=== PATIENT | female | born 1990 | race Caucasian/White ===

== ENCOUNTER → 2023-05-28 09:38 | Outpatient (BNVA) | payer OTHER, SELFPAY | PROVIDERS: PCP Family Medicine; Referring Provider Family Medicine; Visit Provider Psychiatry & Neurology Neurology | DX: G40.909 Epilepsy, unspecified, not intractable, without status epilepticus (principal); R51.9 Headache, unspecified; R55 Syncope and collapse | CPT/HCPCS: 36415; 82306; 82607; 82746; 83735; 83921; 84132; 84439; 84443; 84481; 86617 ==

== ENCOUNTER 2023-07-01 14:48 | Outpatient (CLI) | payer OTHER, SELFPAY ==
--- NOTE | 2023-07-01 15:15 | MR_ITS ---
WS: [id number] MRA ANGIOGRAPHY [place] HISTORY: G40.909 - Epilepsy, unspecified, not intractable, without... COMPARISON: None available. TECHNIQUE: 3-D MR angiography is performed of the [place]. All images are reviewed including source images. Distal vertebral and basilar arteries are intact with no significant stenosis or plaque. Posterior ce rebral arteries are normal course and caliber. Posterior communicating arteries are both patent. Intracranial portion of the internal carotid arteries are normal course and caliber. No significant a therosclerosis, stenosis or aneurysm identified. Middle and anterior cerebral arteries are both paten t with no significant disease. Anterior communicating artery is also normal. No strictures or beading . IMPRESSION: Normal MRA [place].
--- NOTE | 2023-07-01 15:30 | MR_ITS ---
WS: [id number] MRI BRAIN WITH AND WITHOUT CONTRAST HISTORY: G40.909 - Epilepsy, unspecified, not intractable, without... COMPARISON: None available. TECHNIQUE: Multiplanar imaging performed through the brain with MultiHance 12 ml's IV. No acute infarcts are seen. Garcia-white matter differentiation is well preserved. Normal hippocampal f ormations. No susceptibility artifacts or prior lacunar infarcts. Ventricles and extra-axial spaces are normal. Clivus and pituitary gland are normal. Visualized posterior fossa and brainstem are also normal. Postcontrast images are negative for masses or vascular malformations. Dural venous sinuses are normal. Paranasal sinuses: Well aerated with no significant disease. Mastoid air cells: Normal. Calvarium and scalp: Normal. IMPRESSION: 1. Normal MRI brain with contrast. 2. No prior infarcts. Normal hippocampal formations.
[2023-07-01] MEDS: gadobenate dimeglumine 20 mL vial IV (16:06)
== END 2023-07-01 14:49 | disposition home or self-care (01) ==
LOC: RAD 14:48
PROVIDERS: PCP Family Medicine; Visit Provider Psychiatry & Neurology Neurology
DX: G40.909 Epilepsy, unspecified, not intractable, without status epilepticus (principal); R51.9 Headache, unspecified; R55 Syncope and collapse
CPT/HCPCS: 70544; 70553; A9577

== ENCOUNTER 2025-03-23 12:24 | Inpatient (IN) | payer SELFPAY ==
[2025-03-23] VITALS (14 sets, daily range): BP systolic 113–137; BP diastolic 79–100; PULSE 83–137; RESP 15–22; TEMP 36.5; O2SAT 96–100
--- OUTSIDE RECORDS SUMMARY | 2025-03-23 12:31 | XMS_ITS | Patient Health Record ---
Author Organization [facility] Address [address] [place] [address] Care Team Providers Care Hedis Specialist Name Role Phone Jamie Robles MD Primary Care Provider Unavailab Neftaly Siegel Unavailable [phone] Allergies No Known Allergies Reason For Referral No Information Medications Medication SIG (Take, Route, Frequency, Duration) Notes Start Date End Date Status Clonazepam ODT Activ e Effexor XR 150 MG Capsule Extended Release 24 Hour 1 capsule with food Orally Once a day Active busPIRone HCl 10 MG Tablet 1 tablet Oral ly Twice a day Active Lopressor 100 MG Tablet 1 tablet with fo od Orally once a day Active Prevalite 4 GM Packet 1 packet Orally 3X day Active Pantoprazole Sodium 40 MG Tablet Delayed Release 1 tablet Orally Once a day; Duration: 30 days 02/26/2023 Active Probiotic - Tablet Delayed Release as directed Orally Active Social History Tobacco Use: Social History Observation Description Date Details (start date - stop date) Never Smoker NA - NA Social History Depression Screening Social Info Question Answer Notes PHQ-9 Little interest or pleasure in doing thin gs Not at all Feeling down, depressed, or hopeless Not at all Trouble falling or staying asleep, or sleeping t oo much Several days Feeling tired or having little energy Several da ys Poor appetite or overeating Not at all Feeling bad about yourself, or that you are a failure, or have let yourself or your family down Not at all Trouble concentrating on thi ngs, such as reading the newspaper or watching television Not at all Moving or speaking so slowly that other people could have noticed. Or the opposite ? being so fidgety or restless that you have been moving around a lot more than usual Not at all Thoughts that you would be b hayley off , or of hurting yourself in some way Not at all Total Score 2 Interpretation Minimal Depression Drugs/Alcohol: Social Info Question Answer Notes Alcohol Screen (Audit-C) Did you have a drink containing alcohol in the past year? No Points 0 Interpretation Negative Tobacco Use: Social Info Question Answer Notes xTobacco Use/Smoking Are you a nonsmoker Additional Details Category Social Info Options Details Drugs/Alcohol: Do you smoke marijuana? Ad mits Do you drink alcohol? No Section Notes: 09-11-22 smoke screen/alcohol screen depression screen 09-11-22 smoke screen/alcohol screen depression screen 09-11-22 smoke screen/alcohol screen depression screen 09-11-22 smoke screen/alcohol screen depression screen Problems Problem Type SNOMED Code ICD Code Onset Dates Problem Status W/U Status Risk Notes Problem Hemoperitoneum (62325725) Hemoperitoneum (K66.1) Active confirmed Problem Essential hypertension (91862854) Essential hypertension (I10) Active confirmed Problem Diarrhea (38390091) Diarrhea, unspecified type (R19.7) Active confirmed Problem Pain in pelvis (73945179) Pelvic pain (R10.2) Active confirmed Problem Right ovarian cyst (48056516477000682) Right ovarian cyst (N83.201) Active confirmed Problem Chronic diarrhea (221703212) Chronic diarrhea (K52.9) Active confirmed Problem Ulcerative colitis (95506803) Ulcerative colitis with complication, unspecified location (K51.919) Active confirmed Problem Tobacco use (715366373) Vapes nicotine containing substance (Z72.0) Active confirmed Problem Gastroesophageal reflux disease (767974543) Gastroesophageal reflux disease, unspecified whether esophagitis present (K21.9) Active confirmed Problem Nausea and vomiting (87795883) Nausea and vomiting, unspecified vomiting type (R11.2) Active confirmed Plan Of Treatment Pending Test Test Name Order Date Culture Stool 07439, 82197, 92327, 37732 , 10607 02/26/2023 Giardia/Cryptosporidium Screen 26105, 87 329 02/26/2023 Hepatic Function Panel 18044 02/26/2023 O & P Stool 72512, 89405 02/26/2023 Calprotectin Fecal 99187 02/26/2023 C Diff Toxin EIA--49859 02/26/2023 Pancreatic Elastase Fecal--02634 023 Insurance Providers Payer Name Payer Address Payer Phone Subscriber Number Group Number Insured Name Patient Relationship to Insured Coverage Start Date Coverage End Date [address] [address] [place] [address] [id number] Candice Garzon Self - patient is the insured [place] [address] [place] [address] [phone] [id number] Candice Garzon Self - patient is the insured Medical (General) History Medical History History ICD Code Recent stomach issues. Surgical History Surgery Date(Month/Year) ovarian cyst removal 01/23 Hospitalization History Reason Date(Month/Year) see surgical hx
--- NOTE | 2025-03-23 12:36 | ECG_ITS ---
Next [facility] Test Date: 2025-03-23 Pat Name: Candice Garzon Department: Room: Gender: Female Assembly Leader: : 1990 Requested By: Adam Salter Order Number: [id number] Virgil MD: Kobe Garza M.D. Measurements Intervals [place] Rate: 130 P: 40 OR: 100 QRS: 39 QRSD: 74 T: 30 QT: 293 QTc: 432 Interpretive Statements SINUS TACHYCARDIA WITH SHORT OR INTERVAL MODERATE ST DEPRESSION [0.05+ mV ST DEPRESSION] No previous ECG available for comparison Electronically Signed On 03-26-2025 08:52:23 CDT by Kobe Garza M.D. [email or web address]
--- NOTE | 2025-03-23 12:56 | ED_ITS ---
HPI - Chest Pain 2 General: Chief Complaint: Chest Pain Stated Complaint: Lower ABD pain N/V/D can't keep anything down Time Seen by Provider: 03/23/25 12:44 History of Present Illness: 34-year-old female presents to the emerg ency room with complaint of abdominal pain. She states she has been diagnosed gastroparesis in the past. Is complaining mostly of lower abdominal pain she has had nausea vomiting cannot keep anything down she denies any medic easier melena. She also has some pain radiating into the chest associated with her abdominal pain. No history of DVT or PE no shortness of breath at this time. She tells me she previously has had workup for this was told she had gastroparesis. In old records there is mention that she had previously had EGD and colonoscopy biopsies which were indeterminant for ulcerative colitis or Crohn's she was treated for steroids for a time and got better. There is mention of a seizure when she was released she is not on any seizure medications according to her Jesusita's note these were more likely syncopal episodes cardiac origin. Associated symptoms: Reports abdominal pain and nausea; Deny dyspnea or fever(s) Related Data Home Medications ?Medication ?Instructions ?Recorded ?Confirmed prazosin 2 mg capsule 2 mg PO BEDTIME 11/03/23 alprazolam 0.5 mg tablet (Xanax) See Rx Instructions . Route 03/23/25 03/23/25 .COMPLEX PRN Anxiety diphenhydramine HCl 25 mg capsule 25 mg PO BEDTIME PRN Sleep 03/23/25 03/23/25 (Benadryl) Previous Rx's ?Medication ?Instructions ?Recorded pregabalin 100 mg capsule (Lyrica) 100 mg PO BID #60 c aps 11/11/24 ergocalciferol (vitamin D2) 1,250 1,250 mcg PO Q7D 3 m [facility] #13 caps 03/08/25 mcg (50,000 unit) capsule Allergies Allergy/AdvReac Type Severity Reaction Status Date / Time No Known Allergies Allergy Verified 05/12/24 12:45 Review of Systems 2 Const: Denies: fever(s) or chills Card: Denies: chest pain Resp: Denies: dyspnea GI: Reports: abdominal pain, nausea and diarrhea : Denies: dysuria, urinary frequency or urinary urgency Musc: Denies: neck pain or back pain Skin/Breast: Denies: rash PFSH ED 2 PFSH: Social History Smoking and tobacco/nicotine status: former use of tobacco/nicotine (vape) Alcohol intake: never Substance/Drug Use: current Physical Exam 2 Const: GENERAL APPEARANCE: cooperative ORIENTATION/CONSCIOUSNESS: Yes awake HENMT: COMMON NORMALS: normocephalic, atraumatic and hearing grossly normal bilaterally HEAD & SCALP: normocephalic and atraumatic Resp: COMMON NORMALS: normal respiratory effort, No retractions, No use of accessory muscles and clear to auscultation bilaterally AUSCULTATION: clear to auscultation bilaterally Cardio: COMMON NORMALS: regular rhythm and No murmurs present (Cardio) R ATE: tachycardic RHYTHM: regular rhythm GI: AUSCULTATION: Yes normoactive bowel sounds PALPATION: Yes Tenderness to palpation present (GI) (Diffuse) and No Guarding due to palpation present (GI) Extremity: COMMON NORMALS: normal to inspection, capillary refill normal, no clubbing, cyanosis or edema, no calf tenderness and no pedal edema Skin: COMMON NORMALS: no rashes or lesions noted GENERAL SKIN EXAM: no rashes or lesions noted Course 2 Vital Signs: Vital signs: Vital Signs Temperature 97.7 F 03/23/25 12:37 Pulse Rate 101 H 03/23/25 15:00 Respiratory Rate 17 03/23/25 15:00 Blood Pressure 122/82 03/23/25 15:30 Pulse Oximetry 96 03/23/25 15:00 Oxygen Delivery Me thod Room Air 03/23/25 12:37 MDM - Chest Pain Medical Decision Making CT abdomen shows small bowel enteritis with transmural thickening concerning for Crill. No confirmed diagnosis in the past. No distention of the stomach. Discussed with hospitalist. Hospitalist seen the patient, he felt she needed to be seen by GI. He is making arrangements for transfer. Medical Records I reviewed the patient's medical records. Lab Data 03/23/25 12:49 03/23/25 12:49 Radiology Impressions Abdomen/Pelvis CT 03/23/25 13:03 IMPRESSION: 1. Small bowel findings are highly suggestive of Crohn's disease with acute exacerbation of transmural inflammation at this time. There is mucosal enhancement with wall thickening and fibrofatty proliferation involving the distal small bowel. Single stricture also noted in the RIGHT lower quadrant. 2. Normal appendix. 3. No ascites. 4. Stomach is not distended. Laboratory Results WBC 8.18 10^3/uL (3.29-11.43) 03/23/25 12:49 RBC 4.44 10^6/uL (3.85-5.65) 03/23/25 12:49 Hgb 11.90 g/dL (11.27-16.99) 03/23/25 12:49 Hct 36.0 % (36-47) 03/23/25 12:49 MCV 81.1 fl (85-98) L 03/23/25 12:49 MCH 26.8 pg (27-33) L 03/23/25 12:49 MCHC 33.1 g/dL (30-55) 03/23/25 12:49 RDW 14.2 % (12.1-15.1) 03/23/25 12:49 Plt Count 438 10^3/cmm (157-399) H 03/23/25 12:49 MPV 9.5 fL (7.4-10.4) 03/23/25 12:49 Neut % (Auto) 74.5 % 03/23/25 12:49 Lymph % (Auto) 19.3 % 03/23/25 12:49 [place] % (Auto) 4.8 % 03/23/25 12:49 Eos % (Auto) 0.7 % 03/23/25 12:49 Baso % (Auto) 0.5 % 03/23/25 12:49 Neut # (Auto) 6.09 10^3/uL (1.8-7.7) 03/23/25 12:49 Lymph # (Auto) 1.6 10^3/uL (0.8-4.8) 03/23/25 12:49 [place] # (Auto) 0.4 10^3/uL (0.2-0.9) 03/23/25 12:49 Eos # (Auto) 0.1 10^3/uL (0.0-0.8) 03/23/25 12:49 Baso # (Auto) 0.0 10^3/uL (0.0-0.1) 03/23/25 12:49 Nucleated RBC % (auto) 0 % 03/23/25 12:49 Nucleated RBCs # 0.0 /100WBC 03/23/25 12:49 Sodium 136 mmol/L (136-145) 03/23/25 12:49 Potassium 3.7 mmol/L (3.5-5.1) 03/23/25 12:49 Chloride 99 mmol/L (98-107) 03/23/25 12:49 Carbon Dioxide 20 mmol/L (22-29) L 03/23/25 12:49 Anion Gap 20.7 (5-19) H 03/23/25 12:49 BUN 5 mg/dL (6-20) L 03/23/25 12:49 Creatinine 0.7 mg/dL (0.5-0.9) 03/23/25 12:49 GFR Calculation 96.4 mL/min (90-130) 03/23/25 12:49 Glucose 100 mg/dL (65-115) 03/23/25 12:49 Calculated Osmolality 279 mOsm/kg (285-295) L 03/23/25 12:49 Calcium 9.7 mg/dL (8.5-10.5) 03/23/25 12:49 Total Bilirubin 0.4 mg/dL (0.15-1.2) 03/23/25 12:49 AST 25 U/L (0-32) 03/23/25 12:49 ALT 23 U/L (0-33) 03/23/25 12:49 Alkaline Phosphatase 134 U/L (35-105) H 03/23/25 12:49 Total Protein 8.9 g/dL (6.6-8.7) H 03/23/25 12:49 Albumin 4.6 g/dL (3.5-5.2) 03/23/25 12:49 Globulin 4.3 g/dL (1.3-4.6) 03/23/25 12:49 Lipase 16 U/L (13-60) 03/23/25 12:49 HCG, Qual Negative (Negative) 03/23/25 12:49 Urine Color Yellow (Yellow) 03/23/25 15:05 Urine Appearance Clear (CLEAR) 03/23/25 15:05 Urine pH 6.0 (5-7) 03/23/25 15:05 Ur Specific [place] 1.098 (1.005-1.030) H 03/23/25 15:05 Urine Protein Trace (Negative) A 03/23/25 15:05 Urine Glucose (UA) Negative (Normal) 03/23/25 15:05 Urine Ketones 1+ (Negative) H 03/23/25 15:05 Urine Blood Negative (Negative) 03/23/25 15:05 Urine Nitrate Negative (Negative) 03/23/25 15:05 Urine Bilirubin Negative (Negative) 03/23/25 15:05 Urine Urobilinogen 0.2 mg/dL (Negative) 03/23/25 15:05 Ur Leukocyte Esterase Negative (Negative) 03/23/25 15:05 Urine RBC 0-2 /hpf (0-2) 03/23/25 15:05 Urine WBC 0-5 /hpf (0-5) 03/23/25 15:05 Ur Squamous Epith Cells 0-5 /hpf (0-5) 03/23/25 15:05 Amorphous Sediment Not Reportable 03/23/25 15:05 Urine Bacteria 1+ /hpf (NONE) H 03/23/25 15:05 Hyaline Casts 0-4 /lpf H 03/23/25 15:05 All radiology interpretation(s) finalized by discharge Discharge Plan Discharge Patient Disposition: Xfer Short-Term Hosp Clinical Impression: Colitis, Syncope Condition: Stable Referrals: Owen Amos MD [Primary Care Provider, [facility]] Print Language: [place] Coding Level of Care Code ED Broadcast Journalist for Deon Jenkins
[2025-03-23 12:59] LABS: Hematocrit 36.0 % (36-47); Hemoglobin 11.90 g/dL (11.27-16.99); Mean Corpuscular HGB Conc 33.1 g/dL (30-55); Mean Corpuscular Hemoglobin 26.8 pg (27-33); Mean Corpuscular Volume 81.1 fl (85-98); Nucleated Red Blood Cells % 0 %; Platelet Count 438 10^3/cmm (157-399); Red Blood Count 4.44 10^6/uL (3.85-5.65); White Blood Count 8.18 10^3/uL (3.29-11.43)
--- NOTE | 2025-03-23 13:03 | CT_ITS ---
WS: [id number] CT ABDOMEN AND PELVIS WITH CONTRAST HISTORY: abd pain TECHNIQUE: Imaging performed of the abdomen and pelvis with IV contrast. Single phase imaging of the abdomen. Coronal and sagittal reformats are submitted. All CT scans at [facility] use at least one of these dose optimization techniques: automated exposure control; mA and/or kV adjustment per patient size (includes targeted exams where dose is matched to clinical indication); or iterative reconstruction. IV CONTRAST: Omnipaque 350; 100 mL IV. Oral contrast: No DLP: 363.43 mGy.cm COMPARISON: None available. Lower thorax: Lung bases are clear. Heart is normal size. Very small hiatal hernia. Liver/biliary system: Normal size with no intrahepatic dilatation. Gallbladder: Normal. No gallstones or wall thickening. No pericholecystic fluid. Pancreas: Normal size pancreas and pancreatic duct. No adjacent inflammation. Spleen: Normal size spleen. No mass or infarct. Adrenal glands: Normal. Right kidney: Normal. Left kidney: Normal. Aorta: Normal. Lymphadenopathy: None. Free fluid: None. GI tract: Normally distended stomach. No small bowel obstruction. Increased fluid and small bowel mucosal enhancement beginning in the mid to distal small bowel possible stricture in the RIGHT lower quadrant. Mild thickening of the distal small bowel wall as well as local mesenteric fibrofatty proliferation and mild engorgement of the vasa recta. Normal appendix. No colon obstruction. Abdominal wall: Fat containing umbilical hernia. Pelvis: No free fluid or adenopathy within the pelvis. Bones: Unremarkable. CT/CT abdomen pelvis w con* [id number] IMPRESSION: 1. Small bowel findings are highly suggestive of Crohn's disease with acute ex acerbation of transmural inflammation at this time. There is mucosal enhancemen t with wall thickening and fibrofatty proliferation involving the distal small bowel. Single stricture also noted in the RIGHT lower quadrant. 2. Normal appendix. 3. No ascites. 4. Stomach is not distended.
[2025-03-23 13:14] LABS: HCG, Serum Qual Negative (Negative)
[2025-03-23 13:15] LABS: Alanine Aminotransferase 23 U/L (0-33); Albumin Level 4.6 g/dL (3.5-5.2); Alkaline Phosphatase 134 U/L (35-105); Anion Gap 20.7 (5-19); Aspartate Amino Transferase 25 U/L (0-32); Blood Urea Nitrogen 5 mg/dL (6-20); Calcium 9.7 mg/dL (8.5-10.5); Carbon Dioxide 20 mmol/L (22-29); Chloride 99 mmol/L (98-107); Creatinine Clr Calc Pharmacy 99.2994; Globulin 4.3 g/dL (1.3-4.6); Glucose 100 mg/dL (65-115); Lipase 16 U/L (13-60); Osmolality Calculated 279 mOsm/kg (285-295); Potassium 3.7 mmol/L (3.5-5.1); Sodium 136 mmol/L (136-145); Total Protein 8.9 g/dL (6.6-8.7)
[2025-03-23] MEDS: metoclopramide 5 mg/mL SDV 2 mL 10 MG IVP (13:16)
[2025-03-23] MEDS: iohexol 350 mg/mL 500 mL Btl (per mL) IV (13:50)
[2025-03-23 15:29] LABS: Glucose Urine UA Negative (Normal); Nitrate Urine Negative (Negative)
[2025-03-23 15:33] LABS: Add Urine Microscopic? YES
[2025-03-23 16:03] LABS: Specific Gravity, Urine 1.098 (1.005-1.030); UA Slide Review UA Slide Review Perf
--- NOTE | 2025-03-23 18:16 | P.HP_ITS ---
Providers/Chief Complaint 2 Primary Care Provider: Owen Amos MD Chief Complaint: Lower ABD pain N/V/D can't keep anything down History of Present Illness Candice Garzon is a 34 year old female with past medical history of gastrointestinal problem as per the patient diagnosed as IBS previously to 3 years ago by the GI doctor, history of seizures posttraumatic 2 to 3 years ago after history of fall and following with the neurologist not on any antiepileptic medications. As per the neurology likely the patient is having syncope episodes related to paroxysmal orthostatic tachycardic syndrome. Her EEG done in 2022 did not reveal any abnormality.(Detailed report refer to the neurology note). Patient came as a case of nausea vomiting abdominal pain since 3 to 4 days or a week. No blood in the stools no skin rash no mouth ulcers eye symptoms any joint problems or any other systemic symptoms. The patient did not report waking up due to diarrhea stool incontinence. No urinary symptoms. The patient did not report any high-grade fever or chills no recent travels and no outside food intake history. No history of any other drug abuse alcohol intake or any smoking history Rest of the review of system was unremarkable Review of Systems 2 General: Reports: 10 or more systems reviewed and unremarkable except in HPI and below Medications/Allergies Home Medications ?Medication ?Instructions ?Recorded ?Confirmed ?Last Taken ?Type prazosin 2 mg capsule 2 mg PO BEDTIME 11/03/2303/22/25 History pregabalin 100 mg capsule (Lyrica) 100 mg PO BID #60 c aps 11/11/24 03/23/25 03/23/25 Rx ergocalciferol (vitamin D2) 1,250 1,250 mcg PO Q7D 3 m [facility] #13 caps 03/08/25 03/23/25 03/21/25 Rx mcg (50,000 unit) capsule alprazolam 0.5 mg tablet (Xanax) See Rx Instructions . Route 03/23/25 03/23/25 03/23/25 History .COMPLEX PRN Anxiety diphenhydramine HCl 25 mg capsule 25 mg PO BEDTIME PRN Sleep 03/23/25 03/23/25 Unknown History (Benadryl) Allergies Allergy/AdvReac Type Severity Reaction Status Date / Time No Known Allergies Allergy Verified 05/12/24 12:45 PFSH Acute 2 PFSH: Social History Smoking and tobacco/nicotine status: former use of tobacco/nicotine (vape) Alcohol intake: never Substance/Drug Use: current Vitals/I&O/Wt Last Vital Signs Temp 97.7 F 03/23/25 12:37 Pulse 101 H 03/23/25 15:00 Resp 17 03/23/25 15:00 BP 122/82 03/23/25 15:30 Pulse Ox 96 03/23/25 15:00 O2 Del Method Room Air 03/23/25 12:37 Weight last 48 hrs Weight 58.967 kg Physical Exam 2 Narrative: General: Alert oriented x3, patient seen comfortably on the bed HEENT: Normocephalic, atraumatic, EOMI, breathing at room air Cardio: Regular rate rhythm, normal S1-S2, no murmurs rubs gallops, JVD normal_ Respiratory: Good bilateral air entry, no wheezes no rhonchi appreciated GI: Abdomen soft, mildly tender around the periumbilical region, nondistended, normoactive bowel sounds present all 4 quadrants, no organomegaly Neuro: Cranial nerves II to XII intact, strength 5/5, sensation 5/5, no gross neurological deficit Behavior: Appropriate and cooperative Extremities: Pulses 2+, no edema, no cyanosis Skin: Visible skin intact, no rashes Data 03/23/25 12:49 03/23/25 12:49 A&P Assessment and plan 1. Colitis: 2. Syncope: 3. Seizure: Plan: - Sent for stool workup including WBCs and fecal calprotectin - Blood cultures - CRP ESR and lactate - Metronidazole and ciprofloxacin to continue - Continue her home medications for anxiety - Electrolytes monitoring and correction accordingly - Adequate hydration - VTE: Heparin GI consulted at [place] for possible transfer since patient is having features of Crohn's disease with stricture on CT scan and need further care and management accordingly. PDMP PDMP Reviewed: Not Reviewed Attestations 2 Medical Necessity Statement*: Candice Garzon's hospital stay will be more than 2 midnights for possibility of Crohn's disease and Crohn's flare management Time Spent in Patient Care: 16 - 35 minutes (>than 50% of time sp ent in counselling and/or direct pt care on unit) . Other Attestations: Patient condition has been discussed at length with the patient/family, I have independently reviewed the chart labs imaging and diagnostics and EKG. the goals of care and code status with the patient/family/NOK/legal software sales representative, and documented accordingly. The patient/family has been informed about the current condition and further plan of care. Agreed with the plan of care and understood without any language barrier. This documentation was created by [employer] hollow handle knife assembler software. Every effort was made to ensure accuracy of hollow handle knife assembler. Any obvious errors or omissions should be clarified with the author of the document. Coding Level of Care Code 27588 Diagnoses Colitis K52.9 Syncope R55 Seizure R56.9
[2025-03-23] MEDS: pantoprazole 40 mg SDV IVP (18:40)
[2025-03-23] MEDS: HYDROmorphone tab 2 MG TABLET PO (18:49)
--- NOTE | 2025-03-23 18:56 | PC.NURSE ---
This nurse spoke with Dr Mo at [phone] to verify continuing orders despite patient's transfer status. Dr Mo stated to continue ordered meds, as well as collect stool sample if available and continue blood draws.
[2025-03-23 18:57] LABS: Thyroid Stimulating Hormone 1.58 uIU/mL (0.27-4.20)
[2025-03-23] MEDS: metroNIDAZOLE IV 500 MG/100 ML PREMIX 100 MG IV (19:15)
--- NOTE | 2025-03-23 20:27 | PM.TDS ---
Transfer Summary Providers Date of Discharge/Transfer: 03/24/25 Attending Provider at Transfer: Alfonzo Loo MD Primary Care Provider: Owen Amos MD Transfer Plans: Anticipated date of transfer: 03/24/25. Diagnoses at Discharge Discharge Diagnosis 1. Colitis: 2. Syncope: 3. Seizure: Reason for Visit Reason for Visit Lower ABD pain N/V/D can't keep anything down Brief History: Candice Garzon is a 34 year old female with past medical history of gastrointestinal problem as per the patient diagnosed as IBS previously to 3 years ago by the GI doctor, history of seizures posttraumatic 2 to 3 years ago after history of fall and following with the neurologist not on any antiepileptic medications. As per the neurology likely the patient is having syncope episodes related to paroxysmal orthostatic tachycardic syndrome. Her EEG done in 2022 did not reveal any abnormality.(Detailed report refer to the neurology note). Patient came as a case of nausea vomiting abdominal pain since 3 to 4 days or a week. No blood in the stools no skin rash no mouth ulcers eye symptoms any joint problems or any other systemic symptoms. The patient did not report waking up due to diarrhea stool incontinence. No urinary symptoms. The patient did not report any high-grade fever or chills no recent travels and no outside food intake history. No history of any other drug abuse alcohol intake or any smoking history Rest of the review of system was unremarkable Hospital Course Hospital Course Patient underwent investigations in the CT abdomen pelvis reportLeft lower extremity foot ulcer, continue on antibiotics with Vanco and Zosyn was remarkable for features of Crohn's disease with mild thickening of the small bowel and possible stricture as well in the lower quadrant since there was transmural inflammation found as well. Considering the patient was not diagnosed and need of biopsy with further ruling out infection before commencing on steroids the patient workup for possible infectious causes and inflammatory markers was sent. She was started on broad-spectrum antibiotics and [facility] was called for transfer of further management of high likelihood of Crohn's disease. Patient was also informed about her condition and further management with the possibility of transfer. She agreed with the plan of care and all the risk and benefits were also discussed Physical Exam Narrative: General: Alert oriented x3, patient seen comfortably on the bed HEENT: Normocephalic, atraumatic, EOMI, breathing at room air Cardio: Regular rate rhythm, normal S1-S2, no murmurs rubs gallops, JVD normal_ Respiratory: Good bilateral air entry, no wheezes no rhonchi appreciated GI: Abdomen soft, mildly tender around the periumbilical region, nondistended, normoactive bowel sounds present all 4 quadrants, no organomegaly Neuro: Cranial nerves II to XII intact, strength 5/5, sensation 5/5, no gross neurological deficit Behavior: Appropriate and cooperative Extremities: Pulses 2+, no edema, no cyanosis Skin: Visible skin intact, no rashes TS Data Studies Completed and Pending Pending at discharge Category Date Time Status JUAREZ SCREEN [JUAREZ Profile Rheumatology] Stat Lab 03/23/25 19:07 Received Completed Studies During Hospitalization Category Date Time Status CT abdomen pelvis w con* [id number] Stat Cat Scan 03/23/25 13:03 Completed Laboratory Last Values WBC 8.18 10^3/uL (3.29-11.43) 03/23/25 12:49 RBC 4.44 10^6/uL (3.85-5.65) 03/23/25 12:49 Hgb 11.90 g/dL (11.27-16.99) 03/23/25 12:49 Hct 36.0 % (36-47) 03/23/25 12:49 MCV 81.1 fl (85-98) L 03/23/25 12:49 MCH 26.8 pg (27-33) L 03/23/25 12:49 MCHC 33.1 g/dL (30-55) 03/23/25 12:49 RDW 14.2 % (12.1-15.1) 03/23/25 12:49 Plt Count 438 10^3/cmm (157-399) H 03/23/25 12:49 MPV 9.5 fL (7.4-10.4) 03/23/25 12:49 Neut % (Auto) 74.5 % 03/23/25 12:49 Lymph % (Auto) 19.3 % 03/23/25 12:49 Giles % (Auto) 4.8 % 03/23/25 12:49 Eos % (Auto) 0.7 % 03/23/25 12:49 Baso % (Auto) 0.5 % 03/23/25 12:49 Neut # (Auto) 6.09 10^3/uL (1.8-7.7) 03/23/25 12:49 Lymph # (Auto) 1.6 10^3/uL (0.8-4.8) 03/23/25 12:49 Giles # (Auto) 0.4 10^3/uL (0.2-0.9) 03/23/25 12:49 Eos # (Auto) 0.1 10^3/uL (0.0-0.8) 03/23/25 12:49 Baso # (Auto) 0.0 10^3/uL (0.0-0.1) 03/23/25 12:49 Nucleated RBC % (auto) 0 % 03/23/25 12:49 Nucleated RBCs # 0.0 /100WBC 03/23/25 12:49 ESR 28 mm/hr (0-15) H 03/23/25 19:07 Sodium 136 mmol/L (136-145) 03/23/25 12:49 Potassium 3.7 mmol/L (3.5-5.1) 03/23/25 12:49 Chloride 99 mmol/L (98-107) 03/23/25 12:49 Carbon Dioxide 20 mmol/L (22-29) L 03/23/25 12:49 Anion Gap 20.7 (5-19) H 03/23/25 12:49 BUN 5 mg/dL (6-20) L 03/23/25 12:49 Creatinine 0.7 mg/dL (0.5-0.9) 03/23/25 12:49 GFR Calculation 96.4 mL/min (90-130) 03/23/25 12:49 Glucose 100 mg/dL (65-115) 03/23/25 12:49 Calculated Osmolality 279 mOsm/kg (285-295) L 03/23/25 12:49 Lactic Acid 1.3 mmol/L (0.5-2.2) 03/23/25 19:07 Calcium 9.7 mg/dL (8.5-10.5) 03/23/25 12:49 Iron 38 ug/dL (37-145) 03/23/25 19:07 Ferritin 16 ng/mL (15-150) 03/23/25 19:07 Total Bilirubin 0.4 mg/dL (0.15-1.2) 03/23/25 12:49 AST 25 U/L (0-32) 03/23/25 12:49 ALT 23 U/L (0-33) 03/23/25 12:49 Alkaline Phosphatase 134 U/L (35-105) H 03/23/25 12:49 C-React Prot High Sens 1.780 mg/dL (0.0-0.3) H 03/23/25 19:07 Total Protein 8.9 g/dL (6.6-8.7) H 03/23/25 12:49 Albumin 4.6 g/dL (3.5-5.2) 03/23/25 12:49 Globulin 4.3 g/dL (1.3-4.6) 03/23/25 12:49 Lipase 16 U/L (13-60) 03/23/25 12:49 TSH 1.58 uIU/mL (0.27-4.20) 03/23/25 12:49 HCG, Qual Negative (Negative) 03/23/25 12:49 Urine Color Yellow (Yellow) 03/23/25 15:05 Urine Appearance Clear (CLEAR) 03/23/25 15:05 Urine pH 6.0 (5-7) 03/23/25 15:05 Ur Specific Colony 1.098 (1.005-1.030) H 03/23/25 15:05 Urine Protein Trace (Negative) A 03/23/25 15:05 Urine Glucose (UA) Negative (Normal) 03/23/25 15:05 Urine Ketones 1+ (Negative) H 03/23/25 15:05 Urine Blood Negative (Negative) 03/23/25 15:05 Urine Nitrate Negative (Negative) 03/23/25 15:05 Urine Bilirubin Negative (Negative) 03/23/25 15:05 Urine Urobilinogen 0.2 mg/dL (Negative) 03/23/25 15:05 Ur Leukocyte Esterase Negative (Negative) 03/23/25 15:05 Urine RBC 0-2 /hpf (0-2) 03/23/25 15:05 Urine WBC 0-5 /hpf (0-5) 03/23/25 15:05 Ur Squamous Epith Cells 0-5 /hpf (0-5) 03/23/25 15:05 Amorphous Sediment Not Reportable 03/23/25 15:05 Urine Bacteria 1+ /hpf (NONE) H 03/23/25 15:05 Hyaline Casts 0-4 /lpf H 03/23/25 15:05 Radiology Impressions Abdomen/Pelvis CT 03/23/25 13:03 IMPRESSION: 1. Small bowel findings are highly suggestive of Crohn's disease with acute exacerbation of transmural inflammation at this time. There is mucosal enhancement with wall thickening and fibrofatty proliferation involving the distal small bowel. Single stricture also noted in the RIGHT lower quadrant. 2. Normal appendix. 3. No ascites. 4. Stomach is not distended. Recent Clincial Data Last Vital Signs Temp 97.7 F 03/23/25 12:37 Pulse 78 03/24/25 00:02 Resp 22 H 03/23/25 20:11 BP 137/102 03/24/25 00:02 Pulse Ox 99 03/24/25 00:02 O2 Del Method Room Air 03/23/25 20:11 Vital Signs Pulse BP Pulse Ox 03/24/25 00:02 78 137/102 99 Intake & Output/Weight 03/22/25 03/23/25 03/24/25 03/25/25 06:59 06:59 06:59 06:59 Intake Total 100 / 100 Balance 100 / 100 Weight 58.967 kg Vitals Last Vital Signs Temp 97.7 F 03/23/25 12:37 Pulse 78 03/24/25 00:02 Resp 22 H 03/23/25 20:11 BP 137/102 03/24/25 00:02 Pulse Ox 99 03/24/25 00:02 O2 Del Method Room Air 03/23/25 20:11 TS Medications Medications Discontinued Medications Acetaminophen (Acetaminophen 325 Mg Tablet) 650 mg PO Q6H PRN PRN Reason: Mild/Mod Pain Or Temp >/= 101 Al Hydrox/Mg Hydrox/Simethicone (Yjdg-Gph-Sjscldkbm-Vanessa 30 Ml Udc) 15 ml PO Q6H PRN PRN Reason: INDIGESTION Alprazolam (Alprazolam 0.5 Mg Tablet) 0.5 mg PO TID PRN PRN Reason: ANXIETY Bisacodyl (Bisacodyl 5 Mg Tablet) 10 mg PO DAILY PRN; Protocol PRN Reason: Constipation (see protocol) Diphenhydramine HCl (Diphenhydramine 25 Mg Capsule) 25 mg PO BEDTIME PRN PRN Reason: SLEEP Enoxaparin Sodium (Enoxaparin 40 Mg/0.4 Ml Syringe) 40 mg SUBCUT Q24H DANNY Last Admin: 03/23/25 18:40 Dose: 40 mg Ergocalciferol (Ergocalciferol (Vitamin D2) 50,000 Unit Capsule) 50,000 unit PO Q7D DANNY Hydromorphone HCl (Hydromorphone 4 Mg Tablet) 2 mg PO Q6H PRN PRN Reason: SEVERE PAIN Hydromorphone HCl (Hydromorphone Tab 2 Mg Tablet) 2 mg PO Q6H PRN PRN Reason: SEVERE PAIN Last Admin: 03/23/25 18:49 Dose: 2 mg Sodium Chloride (Sodium Chloride 0.9%) 1,000 mls @ 125 mls/hr IV .Q8H DANNY Last Admin: 03/23/25 18:40 Dose: 125 mls/hr Ciprofloxacin/Dextrose (Cipro) 400 mg in 200 mls @ 200 mls/hr IV BID DANNY; Protocol Metronidazole (Flagyl Iv) 500 mg in 100 mls @ 100 mls/hr IV Q8H DANNY; Protocol Last Infusion: 03/23/25 20:30 Dose: Infused Iohexol (Iohexol 350 Mg/Ml 500 Ml Btl (Per Ml)) 0 ml IV ONCE ONE Stop: 03/23/25 13:50 Last Admin: 03/23/25 13:50 Dose: 100 ml Magnesium Hydroxide (Magnesium Hydroxide 30 Ml Udc) 30 ml PO DAILY PRN; Protocol PRN Reason: Constipation (see protocol) Metoclopramide HCl (Metoclopramide 5 Mg/Ml Sdv 2 Ml) 10 mg IVP ONCE ONE Stop: 03/23/25 13:03 Last Admin: 03/23/25 13:16 Dose: 10 mg Ondansetron HCl (Ondansetron 2 Mg/Ml Sdv 2 Ml) 4 mg IVP Q8H PRN PRN Reason: vomiting, or N/V if npo Pantoprazole Sodium (Pantoprazole 40 Mg Sdv) 40 mg IVP Q24H [facility] Last Admin: 03/23/25 18:40 Dose: 40 mg Prazosin HCl (Prazosin 1 Mg Capsule) 2 mg PO BEDTIME [facility] Last Admin: 03/23/25 20:51 Dose: 2 mg Pregabalin (Pregabalin 100 Mg Capsule) 100 mg PO BID DANNY Allergies No Known Allergies Allergy (Verified 05/12/24 12:45) Home Medications prazosin 2 mg capsule 2 mg PO BEDTIME 11/03/23 [History Confirmed 03/23/25] pregabalin 100 mg capsule (Lyrica) 100 mg PO BID #60 caps 11/11/24 [Rx Confirmed 03/23/25] ergocalciferol (vitamin D2) 1,250 mcg (50,000 unit) capsule 1,250 mcg PO Q7D 3 months #13 caps 03/08/25 [Rx Confirmed 03/23/25] alprazolam 0.5 mg tablet (Xanax) See Rx Instructions .Route .COMPLEX PRN Anxiety 03/23/25 [History Confirmed 03/23/25] diphenhydramine HCl 25 mg capsule (Benadryl) 25 mg PO BEDTIME PRN Sleep 03/23/25 [History Confirmed 03/23/25] Discharge Plan Discharge Patient Disposition: Xfer Short-Term Hosp Clinical Impression: Colitis, Syncope Condition: Stable Referrals: Owen Amos MD [Primary Care Provider, Family Practice] Discharge Diet: Advance as tolerated and Usual diet Discharge Activity: Resume usual activity Print Language: Uzbek Transfer Attestations Time Spent in Transfer Care: greater than 30 min Specific Discharge Activities: educating patient, educating and/or supporting family/caregiver, discussing with pcp/other providers, discussing with rehabilitation case coordinator/social workers/dc planners, documenting/other paperwork and evaluating patient/reviewing data Status at Transfer: Cognitive status at transfer: cognitively intact; Behavioral status at transfer: cooperative; Overall status at transfer: patient is not back to baseline Quality Metrics Clinical Quality Measures [ No reported AMI, CVA or VTE this stay] Coding Level of Care Code Acute Code for Chg Fwd Diagnoses Colitis K52.9 Syncope R55 Seizure R56.9
[2025-03-23 20:29] LABS: CRP High Sensitivity Cardiac 1.780 mg/dL (0.0-0.3); Ferritin 16 ng/mL (15-150); Iron 38 ug/dL (37-145)
[2025-03-23 20:31] LABS: Lactic Sepsis W/Reflex 1.3 mmol/L (0.5-2.2)
[2025-03-24 00:02] VITALS: BP 137/102; PULSE 78; O2SAT 99
[2025-03-25 11:39] LABS: COMPLEMENT COMPONENT C3C 192 mg/dL (83-193); COMPLEMENT COMPONENT C4C 31 mg/dL (15-57)
[2025-03-25 14:47] LABS: COMPLEMENT, TOTAL (CH50) >60 U/mL (31-60)
[2025-03-26 04:24] LABS: CENTROMERE B ANTIBODY <1.0 NEG AI (<1.0 NEG); JO-1 ANTIBODY <1.0 NEG AI (<1.0 NEG); RNP ANTIBODY <1.0 NEG AI (<1.0 NEG); SCL-70 ANTIBODY <1.0 NEG AI (<1.0 NEG); SS-B <1.0 NEG AI (<1.0 NEG)
--- OUTSIDE RECORDS SUMMARY | 2025-03-26 07:10 | XMS_ITS | Patient Health Record ---
Author Organization [facility] Address [address], [place] [address] Care Team Providers Care School Principal Name Role Phone Jamie Robles MD Primary Care Provider Unavailab le Neftaly Thompson Unavailable [phone] Allergies No Known Allergies Results Component Value Reference Range Flag Notes Ferritin 38709 (Not yet revi ewed by provider) Interpretation: Performing Lab: Notes/Report: Ferritin 11 8-388 ng/mL Folate 18490 (Not yet review ed by provider) Interpretation: Performing Lab: Notes/Report: Folate >24.00 5.38-24.00 ng/mL Referenc e Range: 5.38->24.00. Patient dosage up to or equal to 50 ng/ml of Biotin (vitamin B7) can potentially increase or decrease results of folate assay with a less than 10% bias. Concentrations of Biotin greater than 50ng/ml can potentially increase or decrease results of Folate assay with a greater than 10% bias. Iron Binding Capacity Total 88012 (Not yet reviewed by provider) Interpretation: Performing Lab: Notes/Report: TIBC 355 250-450 NG/DL Iron Level 90102 (Not yet re viewed by provider) Interpretation: Performing Lab: Notes/Report: Iron 26 50-170 MCG/DL LOW Per Iron as say instruction for Use(IFU), patients treated with metal-binding drugs (e.g.deferoxamine) may have depressed iron values as chelated iron may not properly react in the iron assay. Testing was performed with this assay method. Vitamin B12 (B) 95297 (Not y et reviewed by provider) Interpretation: Performing Lab: Notes/Report: [id number] 551 211-911 pg/mL Abdomen Acute Series-23116 ( Not yet reviewed by provider) Interpretation: Performing Lab: Notes/Report: [id number]=iSite % Iron Saturation (Fe & TIBC )--85372,40114 (Not yet reviewed by provider) Interpretation: Performing Lab: Notes/Report: Iron 26 50-170 MCG/DL LOW Per Iron as say instruction for Use(IFU), patients treated with metal-binding drugs (e.g.deferoxamine) may have depressed iron values as chelated iron may not properly react in the iron assay. Testing was performed with this assay method. TIBC 355 250-450 NG/DL % Iron Saturation 7 20-50 % LOW Upper GI Double Contrast w/S m Bowel Follow Thru-, (Not yet reviewed by provider) Interpretation: Performing Lab: Notes/Report: See Below For Report Upper GI Double Contrast w/Sm Bowel Follow Thru Read See Below For Report Upper GI Double Contrast w/S m Bowel Follow Thru-, (Not yet reviewed by provider) Interpretation: Performing Lab: Notes/Report: [id number]=iSite Reason For Referral No Information Medications Medication [...] Status W/U Status Risk Notes Problem Hemoperitoneum (75486945) Hemoperitoneum (K66.1) Active confirmed Problem Essential hypertension (43310148) Essential hypertension (I10) Active confirmed Problem Diarrhea (41801941) Diarrhea, unspecified type (R19.7) Active confirmed Problem Pain in pelvis (33444618) Pelvic pain (R10.2) Active confirmed Problem Right ovarian cyst (38650862183185185) Right ovarian cyst (N83.201) Active confirmed Problem Chronic diarrhea (389283761) Chronic diarrhea (K52.9) Active confirmed Problem Ulcerative colitis (06838102) Ulcerative colitis with complication, unspecified location (K51.919) Active confirmed Problem Tobacco use (193627049) Vapes nicotine containing substance (Z72.0) Active confirmed Problem Gastroesophageal reflux disease (224193384) Gastroesophageal reflux disease, unspecified whether esophagitis present (K21.9) Active confirmed Problem Nausea and vomiting (46636273) Nausea and vomiting, unspecified vomiting type (R11.2) Active confirmed Plan Of Treatment Pending Test Test Name Order Date Culture Stool 62045, 94992, 66121, 83977 , 00924 02/26/2023 Giardia/Cryptosporidium Screen 36492, 87 329 02/26/2023 Ferritin 44876 03/24/2025 Folate 97783 03/24/2025 Hepatic Function Panel 51858 02/26/2023 Iron Binding Capacity Total 65860 2024 Iron Level 87955 03/24/2025 Vitamin B12 (B) 19820 03/24/2025 O & P Stool 98885, 14374 02/26/2023 Calprotectin Fecal 83516 02/26/2023 Abdomen Acute Series-51749 03/26/2025 % Iron Saturation (Fe & TIBC)--10211,835 50 03/24/2025 C Diff Toxin EIA--65705 02/26/2023 Upper GI Double Contrast w/Sm Bowel Foll ow Thru-09374,41620 03/25/2025 Upper GI Double Contrast w/Sm Bowel Foll ow Thru-01352,23972 03/25/2025 Pancreatic Elastase Fecal--92641 023 Insurance Providers Payer Name Payer Address Payer Phone Subscriber Number Group Number Insured Name Patient Relationship to Insured Coverage Start Date Coverage End Date [address] [address] [place] [address] [id number] Candice Garzon Self - patient is the insured [place] [address] [place] [address] [phone] [id number] Candice Garzon Self - patient is the insured Medical (General) History Medical History History ICD Code Recent stomach issues. Surgical History Surgery Date(Month/Year) ovarian cyst removal 01/23 Hospitalization History Reason Date(Month/Year) see surgical hx
[2025-03-28 16:54] LABS: THYROID PEROXIDASE ANTIBODIES 3 IU/mL (<9)
[2025-03-29 13:50] LABS: DNA AB (DS) CRITHIDIA,IFA NEGATIVE (NEGATIVE)
== END 2025-03-24 00:13 | disposition short-term general hospital (02) | DRG 392 ==
LOC: ER 17:50 → ER IP 03-26 07:08
PROVIDERS: Emergency Medicine; Admitting Provider Student in an Organized Health Care Education/Training Program; Emergency Provider Family Medicine; PCP Family Medicine; Visit Provider Student in an Organized Health Care Education/Training Program
DX: K52.9 Noninfective gastroenteritis and colitis, unspecified (principal); R56.9 Unspecified convulsions; K58.9 Irritable bowel syndrome, unspecified; G90.A Postural orthostatic tachycardia syndrome [POTS]; L97.529 Non-pressure chronic ulcer of other part of left foot with unspecified severity; Z87.891 Personal history of nicotine dependence
CPT/HCPCS: 36415; 74177; 80053; 81001; 82728; 83540; 83605; 83690; 84443; 84703; 85025; 85651; 86141; 86160; 86162; 86235; 86255; 86376; 93005; 96372; J1650; J2470; J2765; J3490; J7030; J9999

== ENCOUNTER → 2025-07-06 14:23 | Outpatient (BNVA) | payer OTHER, SELFPAY | PROVIDERS: PCP Family Medicine; Visit Provider Specialist | DX: R29.818 Other symptoms and signs involving the nervous system (principal); G43.711 Chronic migraine without aura, intractable, with status migrainosus; F32.A Depression, unspecified; R42 Dizziness and giddiness | CPT/HCPCS: 99215 ==